=== PATIENT | male | born 1975 | race Caucasian/White ===

== ENCOUNTER → 2017-08-29 | Outpatient (CLI) | payer OTHER ==
[~2017-08-29] MED LIST: AMITRIPTYLINE PO; CLONIDINE PO; FAMOTIDINE PO; PANTOPRAZOLE PO; [UNRECOGNIZED DRUG - OTHER] PO
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
== END | disposition home or self-care (01) ==
LOC: HKI 15:06
PROVIDERS: ATTEND Orthopaedic Surgery Adult Reconstructive Orthopaedic Surgery
DX: M23.203 Derangement of unspecified medial meniscus due to old tear or injury, right knee (principal)
CPT/HCPCS: G0463

== ENCOUNTER 2018-03-08 05:39 | Day surgery (SDC) | END 2018-03-08 11:45 | disposition home or self-care (01) ==

== ENCOUNTER 2018-11-22 13:39 | Day surgery (SDC) | END 2018-11-22 18:30 | disposition home or self-care (01) ==